=== PATIENT | male | born 1990 | race Caucasian/White ===

== ENCOUNTER 2019-06-09 18:59 | Emergency (ER) | payer SELFPAY ==
[2019-06-09 19:33] LABS: HEMATOCRIT 49.8 % (42.0-52.0); HEMOGLOBIN 16.7 gm/dl (14.0-18.0); MEAN CELL VOLUME 89.2 fl (81-97); MEAN CORPUSCULAR HEMOGLOBIN 29.9 pg (27-33); MEAN CORPUSCULAR HGB CONC 33.5 g/dl (32-36); MEAN PLATELET VOLUME 10.9 fl (7.4-10.4); PLATELET COUNT 424 K/uL (130-400); RED BLOOD COUNT 5.58 M/uL (4.40-5.70); RED CELL DISTRIBUTION WIDTH 13.5 % (11.5-14.5)
[2019-06-09 19:46] LABS: ARTERIAL BLOOD GAS BASE EXCESS -4.1 mmol/L (-2 - 3); ARTERIAL BLOOD GAS HCO3 18.7 mmol/L (18-23); ARTERIAL BLOOD GAS PCO2 27.5 mmHg (35-48); ARTERIAL BLOOD GAS pH 7.45 (7.35-7.45)
[2019-06-09 19:46] LABS: PROTHROMBIN TIME (PATIENT) 10.6 SECONDS (9.5-12.1)
[2019-06-09 19:55] LABS: WHITE BLOOD COUNT W/O DIFF 22.3 K/uL (4.2-12.2)
[2019-06-09 19:57] LABS: ALLEN TEST PASS
[2019-06-09 20:00] LABS: BILIRUBIN,TOTAL < 0.20 mg/dL (0.2-1.0); BLOOD UREA NITROGEN 8 mg/dL (6-20); CREATININE 1.2 mg/dL (0.7-1.2); EST GLOMERULAR FILTRATION RATE > 60 mL/min; TOTAL PROTEIN 8.4 g/dL (6.6-8.7)
[2019-06-09 20:02] LABS: GLUCOSE,RANDOM 150 mg/dL (74-109)
[2019-06-09 20:05] LABS: ALB/GLOB RATIO 1.5 (1.1-1.8); ALKALINE PHOSPHATASE 90 U/L (40-129); ALT/SGPT 15 U/L (<41); AMMONIA 31 umol/L (16.0-60.0); AST/SGOT 23 U/L (10.0-50.0)
--- NOTE | 2019-06-09 20:12 | Emergency Department Record ---
History of Present Illness - General Chief Complaint: Overdose Stated Complaint: OD Time Seen by Provider: 06/09/19 19:19 Source: Patient Mode of Arrival: Ambulatory Limitations: No limitations - History of Present Illness Initial Comments: pt came to hospital admitting he took a bottle and a half of aspirin 75x 325mg [id number] which figures out to be 297mg per kg. he was overwhelmed by his problems and states he was taking asa by the handful for 6 hrs though he told the nurse 2 hrs. he vomited black and red. pt is tachy, lightheaded and diaphoretic . pt has extreme tinnitis MD Complaint: Intentional overdose Onset/Timin -: Hour(s) - [place] Coma Scale Eye Response: (4) Open spontaneously Motor Response: (6) Obeys commands Verbal Response: (5) Oriented [place] Total: 15 Substance Ingested: aspirin Number of Pills Ingested: 75 - Detail Intent: Suicide attempt How Overdose Was Discovered: Called family/friend Associated Symptoms: Nausea/vomiting Treatments Prior to Arrival: None - Related Data Home Medications Medication Instructions Recorded Confirmed Last Taken No Home Med [NO HOME MEDS] 06/09/19 06/09/19 Unknown Allergies Allergy/AdvReac Type Severity Reaction Status Date / Time No Known Drug Allergies Allergy Verified 06/09/19 19:06 Travel Screening - Travel/Exposure Within Last 30 Days Have you traveled within the last 30 days?: No - Travel/Exposure Within Last Year Have you traveled outside the [place] in the last year?: No - Additonal Travel Details Have you been exposed to anyone with a communicable illness?: No - Travel Symptoms Symptom Screening: None Review of Systems Reviewed: No additional complaints except as noted below Constitutional: Reports: As per HPI. Denies: Chills, Fever, Malaise, Night sweats, Weakness, Weight change Eyes: Reports: As per HPI. Denies: Eye discharge, Eye pain, Photophobia, Vision change ENT: Reports: As per HPI. Denies: Congestion, Dental pain, Ear pain, Epistaxis, Hearing loss, Throat pain Respiratory: Reports: As per HPI. Denies: Cough, Dyspnea, Hemoptysis, Stridor, Wheezes Cardiovascular: Reports: As per HPI, Palpitations. Denies: Arrhythmia, Chest pain, Dyspnea on exertion, Edema, Murmurs, Orthopnea, Paroxysmal nocturnal dyspnea, Rheumatic Fever, Syncope Endocrine: Reports: As per HPI. Denies: Fatigue, Heat or cold intolerance, Polydipsia, Polyuria Gastrointestinal: Reports: As per HPI. Denies: Abdominal pain, Constipation, Diarrhea, Hematemesis, Hematochezia, Melena, Nausea, Vomiting Genitourinary: Reports: As per HPI. Denies: Dysuria, Frequency, Hematuria, Incontinence, Retention, Testicular pain, Testicular mass, Urgency Musculoskeletal: Reports: As per HPI. Denies: Arthralgia, Back pain, Gout, Joint swelling, Myalgia, Neck pain Skin: Reports: As per HPI. Denies: Bruising, Change in color, Change in hair/nails, Lesions, Pruritus, Rash Neurological: Reports: As per HPI. Denies: Abnormal gait, Confusion, Headache, Numbness, Paresthesias, Seizure, Tingling, Tremors, Vertigo, Weakness Psychiatric: Reports: As per HPI. Denies: Anxiety, Auditory hallucinations, Depression, Homicidal thoughts, Suicidal thoughts, Visual hallucinations Hematological/Lymphatic: Reports: As per HPI. Denies: Anemia, Blood Clots, Easy bleeding, Easy bruising, Swollen glands Past Medical History - SOCIAL HISTORY Smoking Status: Current every day smoker Alcohol Use: Occasional Drug Use Detail:: Marijuana - RESPIRATORY Hx Respiratory Disorders: No - CARDIOVASCULAR Hx Cardio Disorders: No - NEURO Hx Neuro Disorders: No - GI Hx GI Disorders: No - Hx Genitourinary Disorders: No - ENDOCRINE Hx Endocrine Disorders: No - MUSCULOSKELETAL Hx Musculoskeletal Disorders: No - PSYCH Hx Psych Problems: No - HEMATOLOGY/ONCOLOGY Hx Hematology/Oncology Disorders: No Family Medical History Any Significant Family History?: No Physical Exam - General General Appearance: Alert, Oriented x3, Cooperative, Moderate distress, Severe distress - Head Head exam: Normal inspection - Eye Eye exam: Normal appearance, PERRL, EOMI Pupils: Normal accommodation - ENT ENT exam: Normal exam, Mucous membranes moist, Normal external ear exam, Normal orophraynx Ear exam: Normal external inspection. negative: External canal tenderness Nasal Exam: Normal inspection. negative: Discharge, Sinus tenderness Mouth exam: Normal external inspection, Tongue normal Teeth exam: Normal inspection. negative: Dental caries Throat exam: Normal inspection. negative: Tonsillar erythema, Tonsillar exudate - Neck Neck exam: Normal inspection, Full ROM. negative: Tenderness - Respiratory Respiratory exam: Normal lung sounds bilaterally. negative: Respiratory distress - Cardiovascular Cardiovascular Exam: Normal rhythm, Normal heart sounds, Tachycardia - GI/Abdominal GI/Abdominal exam: Soft, Normal bowel sounds. negative: Tenderness - Rectal Rectal exam: Deferred - exam: Deferred - Extremities Extremities exam: Normal inspection, Full ROM, Normal capillary refill. negative: Tenderness - Back Back exam: Reports: Normal inspection, Full ROM. Denies: Muscle spasm, Rash noted, Tenderness - Neurological Neurological exam: Alert, CN II-XII intact, Normal gait, Oriented X3, Reflexes normal - Psychiatric Psychiatric exam: Depressed, Normal affect - Skin Skin exam: Diaphoretic, Dry, Intact, Normal color, Warm Course Vital Signs 06/09/19 19:07 Temperature 97.5 F L Pulse Rate [ 112 H Left] Respiratory 22 Rate Blood Pressure 149/109 [Right Arm] Pulse Ox 100 - Reevaluation(s) Reevaluation #1: 06/09/19 20:34 poison control was called and they recommended against charcoal since he vomited red Reevaluation #2: 06/09/19 20:34 d/w marketing associate dr rodriguez who stated to not start bicarb drip Reevaluation #3: 06/09/19 20:39 bicarb 1meqper kg pushed per protocol Reevaluation #4: 06/09/19 20:39 ekg sinus tach Medical Decision Making - Lab Data Result diagrams: 06/09/19 19:10 06/09/19 19:10 Lab Results 06/09/19 06/09/19 06/09/19 Range/Units 19:10 19:10 19:20 WBC 22.3 H* (4.2-12.2) K/uL RBC 5.58 (4.40-5.70) M/uL Hgb 16.7 (14.0-18.0) gm/dl Hct 49.8 (42.0-52.0) % MCV 89.2 (81-97) fl MCH 29.9 (27-33) pg MCHC 33.5 (32-36) g/dl RDW 13.5 (11.5-14.5) % Plt Count 424 H (130-400) K/uL MPV 10.9 H (7.4-10.4) fl Eosinophils % Not Reportable Basophils % Not Reportable Absolute Neutrophils Not Reportable PT 10.6 (9.5-12.1) SECONDS INR 1.0 APTT 25.0 (24.5-39.1) SECONDS Puncture Site Right wrist pCO2 27.5 L (35-48) mmHg pO2 104.0 (83-108) mmHg HCO3 18.7 (18-23) mmol/L Oxyhemoglobin Not Reportable ABG pH 7.45 (7.35-7.45) ABG O2 Saturation Not Reportable ABG Base Excess -4.1 L (-2 - 3) mmol/L Srinivas Test Pass Carboxyhemoglobin Not Reportable Methemoglobin Not Reportable Actual Respiration Rate 16.0 (10-18) /MIN FiO2 21.0 % Disposition Disposition: Transfer Clinical Impression: Suicide attempt Salicylate overdose Qualifiers: Encounter type: initial encounter Injury intent: intentional self-harm Qualified Code(s): T39.092A - Poisoning by salicylates, intentional self-harm, initial encounter Disposition: Acute Care Hospital Transfer Transfer To: [facility] Reason For Transfer: needs marketing associate Accepting Physician: dr rodriguez Time Discussed w/Accepting Physician: 20:39 Forms: Patient Portal Access Quality - Quality Measures Quality Measures: N/A - Blood Pressure Screening Does Patient Have Any of the Following: No Blood Pressure Classification: Hypertensive Reading Systolic Measurement: 149 Diastolic Measurement: 109 Screening for High Blood Pressure: < First Hypertensive BP, F/U Documented > [G8950] First Hypertensive Follow-up Interventions: Follow-up with rescreen GT 1 day and LT 4 weeks.
[2019-06-09] MEDS ORDERED: SODIUM BICARBONATE 50MEQ SYRINGE IVP ONE (20:25)
[2019-06-09] MEDS ORDERED: LIDOCAINE UROJECT 10 ML APPL MM ONE (20:41)
[2019-06-09 20:52] LABS: URINE APPEARANCE CLOUDY; URINE BILIRUBIN NEGATIVE (NEGATIVE); URINE BLOOD TRACE-I (NEGATIVE); URINE COLOR YELLOW; URINE GLUCOSE (UA) NEGATIVE (NEGATIVE); URINE KETONE 40 mg/dL (NEGATIVE); URINE LEUKOCYTE ESTERASE NEGATIVE (NEGATIVE); URINE NITRITE NEGATIVE (NEGATIVE); URINE UROBILINOGEN 0.2 E.U./dL (0.20 - 1.00)
[2019-06-09 21:09] LABS: URINE AMORPHOUS SEDIMENT 2+; URINE EPITHELIAL CELLS 0 - 2 (FEW); URINE RBC 0 - 2 (NONE SEEN)
[2019-06-09 21:11] LABS: URINE HYALINE CAST 0 - 5 /lpf
[2019-06-09 21:12] LABS: ACETAMINOPHEN < 5.0 ug/mL (10.0-30.0)
[2019-06-09 21:17] LABS: AMPHETAMINE SCREEN URINE DETECTED; BARBITURATE SCREEN URINE NOT DETECTED; BENZODIAZEPINE SCREEN URINE NOT DETECTED; COCAINE SCREEN URINE NOT DETECTED; METHADONE SCREEN URINE NOT DETECTED; OPIATE SCREEN URINE NOT DETECTED; PHENCYCLIDINE SCREEN URINE NOT DETECTED; THC SCREEN URINE DETECTED; TRICYCLIC ANTIDEPRESSANT SCRN NOT DETECTED
[2019-06-09 21:18] LABS: SALICYLATE > 70.0 mg/dL (2.8-20)
[2019-06-09 21:18] LABS: METHAMPHETAMINE SCREEN DETECTED; OXYCODONE SCREEN URINE NOT DETECTED; PROPOXYPHENE SCREEN URINE NOT DETECTED
[2019-06-09 22:07] LABS: PLATELET ESTIMATE NORMAL (NORMAL)
== END 2019-06-09 20:56 | disposition short-term general hospital (02) ==
LOC: ER 18:59
DX: T39.012A Poisoning by aspirin, intentional self-harm, initial encounter (principal); R00.0 Tachycardia, unspecified; R11.2 Nausea with vomiting, unspecified; F17.210 Nicotine dependence, cigarettes, uncomplicated; Y92.009 Unspecified place in unspecified non-institutional (private) residence as the place of occurrence of the external cause
CPT/HCPCS: 36600; 80053; 80305; 80320; 80329; 81001; 82140; 82375; 82803; 85027; 85610; 85730; 93005; 93010; 96360; 99291